=== PATIENT | female | born 1935 | race Caucasian/White ===

== ENCOUNTER 2017-03-06 21:37 | Observation (INO) | payer MEDICARE ==
[~2017-03-06] VITALS: Ht 160 cm; Wt 63.6 kg
[2017-03-06 21:39] VITALS: BP 122/74; PULSE 63; RESP 18; TEMP 98.9; O2SAT 91
[2017-03-06] MEDS ORDERED: SODIUM CHLOR 0.9% 1000 ML INJ 1,000 ML IV ONE (21:53)
[2017-03-06] MEDS ORDERED: ZOFR8TAB PO (21:58)
[2017-03-06] MEDS ORDERED: AMLO5 PO (21:58)
[2017-03-06 22:00] VITALS: O2SAT 98
[2017-03-06] MEDS ORDERED: methylPREDNISolone SOD SUCC 125 MG/2 ML VIAL IVP ONE (22:00)
[2017-03-06] MEDS ORDERED: AZITHROMYCIN INJ 500 MG in SODIUM CHLOR 0.9% 250 ML INJ 250 ML IV ONE (22:00)
[2017-03-06] MEDS ORDERED: cefTRIAXone INJ 1,000 MG in SODIUM CHLORIDE 0.9% INJ 100 ML IV ONE (22:00)
[2017-03-06] MEDS: RESP: ALBUTEROL 2.5 MG/IPRATROPIUM 0.5 MG NEB (SCH) INH ×2 (22:07→22:08)
[2017-03-06] MEDS ORDERED: ARIC10TA PO (22:10)
[2017-03-06 22:12] VITALS: BP 160/76; PULSE 64; RESP 18; TEMP 99.2; O2SAT 91
--- NOTE | 2017-03-06 22:18 | PD ---
HPI Chief Complaint: Respiratory Distress Time Seen by Provider: 21:47 Travel History International Travel<30 days: No Contact w/Intl Traveler<30days: No Traveled to known affect area: No History of Present Illness HPI 81-year-old female with history of dementia, hypertension, brought in by her son for evaluation of cough. The patient was diagnosed with pneumonia about a month ago. A few days ago she again developed a cough, and was seen at [facility] and was diagnosed with a right lower lobe pneumonia and she was started on Levaquin and given an albuterol inhaler. Patient's symptoms seem to worsen today with persisting cough sometimes productive of yellowish sputum and shortness of breath. She has also had a fever. She is having intermittent chest discomfort when she coughs, none at rest. No vomiting or diarrhea. No abdominal pain. According to the son, the patient is a former smoker, quitting about 20 years ago. She has no formal diagnosis of COPD or emphysema. No known history of coronary artery disease. [facility] Past Medical History Dementia: Yes Hypertension: Yes Tetanus Vaccination: Unknown Influenza Vaccination: No Past Surgical History Eye Surgery: Yes (corrective lens surgery) Joint Replacement: Yes (right shoulder) Social History Alcohol Use: No Tobacco Use: No Substance Use: No Allergies-Medications (Allergen,Severity, Reaction): Coded Allergies: Epinephrine (Verified Allergy, Severe, TACHYCARDIA AND CONFUSION, 03/06/17) Uncoded Allergies: UNKNOWN ANESTHESIA (Adverse Reaction, Severe, Confusion, 01/14/07) Reported Meds & Prescriptions Reported Meds & Active Scripts Active Reported Aricept (Donepezil) 10 Mg Tab 10 Mg PO HS Norvasc (Amlodipine Besylate) 5 Mg Tab 5 Mg PO DAILY Review of Systems Except as stated in HPI: all other systems reviewed are Neg Physical Exam Narrative GENERAL: Well-developed, well-nourished, elderly-appearing female, mild respiratory distress, speaking full sentences. SKIN: Focused skin assessment warm/dry. No rashes. HEAD: Atraumatic. Normocephalic. EYES: Pupils equal and round. No scleral icterus. No injection or drainage. ENT: No nasal bleeding or discharge. Mucous membranes pink and moist. NECK: Trachea midline. No JVD. CARDIOVASCULAR: Regular rate and rhythm. RESPIRATORY: Persistent cough, mild respiratory distress, speaking full sentences, slight inspiratory and auditory wheezes bilaterally. No rales. GASTROINTESTINAL: Abdomen soft, non-tender, nondistended. MUSCULOSKELETAL: No obvious deformities. No clubbing. No cyanosis. No edema. NEUROLOGICAL: Awake and alert. No obvious cranial nerve deficits. Motor grossly within normal limits. Normal speech. PSYCHIATRIC: Appropriate mood and affect; insight and judgment normal. Data Data Last Documented VS Vital Signs Date Time Temp Pulse Resp B/P Pulse Ox O2 Delivery O2 Flow Rate FiO2 03/06/17 22:12 99.2 64 18 160/76 91 03/06/17 22:00 Nasal Cannula 2 Orders Electrocardiogram (03/06/17 21:53) Complete Blood Count With Diff (03/06/17 21:53) Comprehensive Metabolic Panel (03/06/17:53) Prothrombin Time / Inr (Pt) (03/06/17:53) Act Partial Throm Time (Ptt) (03/06/17 21:53) Lactic Acid Sepsis Protocol (03/06/17 21:53) Ckmb (Isoenzyme) Profile (03/06/17:53) Troponin I (03/06/17:53) Urinalysis - C+S If Indicated (03/06/17 21:53) Influenzae A/B Antigen (03/06/17 21:53) Blood Culture (03/06/17:53) Chest, Single Ap (03/06/17:53) Ecg Monitoring (03/06/17 21:53) Iv Access Insert/Monitor (03/06/17 21:53) Oximetry (03/06/17 21:53) Oxygen Administration (03/06/17:53) Sodium Chlor 0.9% 1000 Ml Inj (Ns 1000 M (03/06/17 21:53) Ceftriaxone Inj (Rocephin Inj) (03/06/17 22:00) Azithromycin Inj (Zithromax Inj) (03/06/17 22:00) Methylprednisolone So Succ Inj (Solumedr (03/06/17 22:00) Albuterol-Ipratropium Neb (Duoneb Neb) (03/06/17 22:00) Admit Order (Ed Use Only) (03/06/17 22:42) CKMB (03/06/17 22:00) CKMB% (03/06/17 22:00) Labs Laboratory Tests Test 03/06/17 22:00 White Blood Count 6.5 TH/MM3 Red Blood Count 4.50 MIL/MM3 Hemoglobin 13.9 GM/DL Hematocrit 41.3 % Mean Corpuscular Volume 91.9 FL Mean Corpuscular Hemoglobin 30.8 PG Mean Corpuscular Hemoglobin 33.5 % Concent Red Cell Distribution Width 12.8 % Platelet Count 236 TH/MM3 Mean Platelet Volume 7.8 FL Neutrophils (%) (Auto) 56.9 % Lymphocytes (%) (Auto) 28.0 % Monocytes (%) (Auto) 12.8 % Eosinophils (%) (Auto) 0.9 % Basophils (%) (Auto) 1.4 % Neutrophils # (Auto) 3.7 TH/MM3 Lymphocytes # (Auto) 1.8 TH/MM3 Monocytes # (Auto) 0.8 TH/MM3 Eosinophils # (Auto) 0.1 TH/MM3 Basophils # (Auto) 0.1 TH/MM3 CBC Comment DIFF FINAL Differential Comment Prothrombin Time 11.0 SEC Prothromb Time International 1.0 RATIO Ratio Activated Partial 29.6 SEC Thromboplast Time Sodium Level 138 MEQ/L Potassium Level 3.4 MEQ/L Chloride Level 102 MEQ/L Carbon Dioxide Level 28.1 MEQ/L Anion Gap 8 MEQ/L Blood Urea Nitrogen 16 MG/DL Creatinine 0.66 MG/DL Estimat Glomerular Filtration 86 ML/MIN Rate Random Glucose 102 MG/DL Lactic Acid Level 1.0 mmol/L Calcium Level 8.3 MG/DL Total Bilirubin 0.5 MG/DL Aspartate Amino Transf 18 U/L (AST/SGOT) Alanine Aminotransferase 18 U/L (ALT/SGPT) Alkaline Phosphatase 78 U/L Total Creatine Kinase 140 U/L Creatine Kinase MB 3.0 NG/ML Troponin I LESS THAN 0.02 NG/ML Total Protein 6.9 GM/DL Albumin 3.2 GM/DL [facility] Medical Decision Making Medical Screen Exam Complete: Yes Emergency Medical Condition: Yes Differential Diagnosis Sepsis, pneumonia, reactive airway disease, ACS, pneumothorax, PE, Narrative Course Initial vital signs show heart rate 63, blood pressure 122/74, pulse ox 91% on room air, oral temp of 98.9F. CBC is unremarkable. CMP is unremarkable. Lactic acid is 1.0. Chest x-ray: No acute disease. No evidence of pneumonia. Patient was given 3 DuoNeb treatments and IV Solu-Medrol with improvement in wheezing. She is still hypoxic on room air with a sat of 91% on RA. This improves to 98% on 2 L nasal cannula. Patient is a former smoker, having quit 20 years ago. She has no formal diagnosis of COPD or emphysema. She is likely suffering from bronchitis/reactive airway disease. She does have a deep sounding/persistent cough here in the emergency department. She was given a dose of rocephin and azithromycin. Given her age and hypoxia, she will be admitted for overnight observation. Case discussed with [facility] hospitalist Dr. Patel who will admit the patient to his service. Patient's initial facies show that she had [employer] [facility] insurance, however she actually has [facility] insurance. Admission will be switched from [facility] to [facility]. Case discussed with hospitalist Dr. Gonzalez who will admit the patient to his service for overnight observation. Diagnosis Primary Impression: Bronchitis Additional Impression: Hypoxia Admitting Information Admitting Physician Requests: Observation Ron Yost MD March 06, 2017 22:18
[2017-03-06 22:31] LABS: AUTOMATED NEUTROPHIL # 3.7 TH/MM3 (1.8-7.7); BASOPHIL # 0.1 TH/MM3 (0-0.2); BASOPHIL % 1.4 % (0.0-2.0); EOSINOPHIL # 0.1 TH/MM3 (0-0.4); EOSINOPHIL % 0.9 % (0.0-4.0); HEMATOCRIT 41.3 % (35.0-46.0); HEMO FLAGS DIFF FINAL; LYMPHOCYTE # 1.8 TH/MM3 (1.0-4.8); MEAN CELL VOLUME 91.9 FL (80.0-100.0); MEAN CORPUSCULAR HEMOGLOBIN 30.8 PG (27.0-34.0); MEAN CORPUSCULAR HGB CONC 33.5 % (32.0-36.0); MONO % 12.8 % (0.0-8.0); NEUT % 56.9 % (16.0-70.0); PLATELET COUNT 236 TH/MM3 (150-450); RED CELL DISTRIBUTION WIDTH 12.8 % (11.6-17.2); WHITE BLOOD COUNT 6.5 TH/MM3 (4.0-11.0)
--- NOTE | 2017-03-06 22:33 | RADHPO ---
EXAM DATE/TIME: 03/06/2017 22:02 [place] COMPARISON: No previous studies available for comparison. INDICATIONS : Cough and congestion. MEDICAL HISTORY : Hypertension. Pneumonia. SURGICAL HISTORY : None. ENCOUNTER: Initial ACUITY: 4 - 6 days PAIN SCORE: 0/10 LOCATION: Bilateral chest FINDINGS: A single view of the chest demonstrates the lungs to be symmetrically aerated without evidence of mas s, infiltrate or effusion. The cardiomediastinal contours are unremarkable. Osseous structures are intact. Overlying cardiac leads and oxygen tubing. CONCLUSION: No acute disease. There is no evidence of pneumonia. Matthias Ruff MD on March 06, 2017 at 22:31 Board Certified Radiologist. This report was verified electronically.
[2017-03-06 22:40] LABS: CHLORIDE 102 MEQ/L (98-107); POTASSIUM 3.4 MEQ/L (3.5-5.1); SODIUM (NA) 138 MEQ/L (136-145)
[2017-03-06 22:44] LABS: ANION GAP 8 MEQ/L (5-15); APTT (PATIENT) 29.6 SEC (24.3-30.1); BICARBONATE 28.1 MEQ/L (21.0-32.0); BLOOD UREA NITROGEN 16 MG/DL (7-18)
[2017-03-06 22:47] LABS: ALT (GPT) 18 U/L (10-53); AST (GOT) 18 U/L (15-37); GLOMERULAR FILTRATION RATE 86 ML/MIN (>89)
[2017-03-06 22:49] LABS: TOTAL BILIRUBIN ADULT 0.5 MG/DL (0.2-1.0)
[2017-03-06 22:50] LABS: ALKALINE PHOSPHATASE 78 U/L (45-117); CREATINE KINASE 140 U/L (26-192)
[2017-03-06 23:01] VITALS: PULSE 72; RESP 18; O2SAT 98
[2017-03-06 23:21] VITALS: BP 133/59
[2017-03-07] VITALS (9 sets, daily range): BP systolic 110–144; BP diastolic 62–74; PULSE 60–72; RESP 16–21; TEMP 96.4–98.1; O2SAT 94–97
[2017-03-07 00:03] LABS: BLOOD, URINE TRACE (NEG); GLUCOSE,URINE NEG (NEG); KETONE, URINE TRACE mg/dL (NEG); NITRITE,URINE NEG (NEG); PH, URINE 5.5 (5.0-8.5)
[2017-03-07 00:09] LABS: URINE COLOR YELLOW (YELLW/STRAW)
[2017-03-07 00:12] LABS: MUCUS URINE FEW /lpf (OCC); RBC, URINE 0-3 /hpf (0-3); SQUAMOUS EPITHELIAL CELL URINE 0-5 /hpf (0-5)
[2017-03-07 00:13] LABS: BACTERIA, URINE OCC /hpf; COMMENT (UR) CULT NOT INDICATED; CULTURE IF INDICATED CULT NOT INDICATED
[2017-03-07] MEDS ORDERED: POTASSIUM CHLORIDE 25 MEQ EFFERVESCENT TAB PO ONE (02:00)
[2017-03-07] MEDS ORDERED: NALOXONE HCL 0.4 MG/ML AMP IV PRN (02:00)
[2017-03-07] MEDS ORDERED: SODIUM CHLORIDE 0.9% FLUSH 10 ML FLUSH IV FLUSH PRN (02:00)
[2017-03-07] MEDS ORDERED: ACETAMINOPHEN 325 MG TAB PO PRN ×2 (02:00)
[2017-03-07 07:52] LABS: CHLORIDE 108 MEQ/L (98-107); POTASSIUM 3.8 MEQ/L (3.5-5.1); SODIUM (NA) 144 MEQ/L (136-145)
[2017-03-07 08:04] LABS: ANION GAP 10 MEQ/L (5-15); BICARBONATE 26.3 MEQ/L (21.0-32.0)
[2017-03-07 08:05] LABS: BLOOD UREA NITROGEN 11 MG/DL (7-18)
[2017-03-07 08:08] LABS: ALT (GPT) 17 U/L (10-53); AST (GOT) 19 U/L (15-37); GLOMERULAR FILTRATION RATE 111 ML/MIN (>89)
[2017-03-07 08:09] LABS: TOTAL BILIRUBIN ADULT 0.3 MG/DL (0.2-1.0)
[2017-03-07 08:10] LABS: ALKALINE PHOSPHATASE 69 U/L (45-117)
[2017-03-07] MEDS: amLODIPine BESYLATE 5 MG TAB PO SCH (09:49)
[2017-03-07] MEDS: SODIUM CHLORIDE 0.9% FLUSH 10 ML FLUSH IV FLUSH SCH ×2 (09:49→20:08)
--- NOTE | 2017-03-07 11:57 | HHI.HP ---
[facility] Asmita Morrison DO Admission Diagnosis bronchitis, hypoxia Diagnoses: (1) Hypoxia Diagnosis: Principal (2) Bronchitis Diagnosis: Principal Travel History International Travel<30 Days: No Contact w/Intl Traveler <30 Da: No Traveled to Known Affected Are: No History of Present Illness Mrs. Santos is a 81-year-old female. She came in overnight with hypoxia and bronchitis. She may have COPD exacerbation but she does not have COPD officially diagnosed. Evidence of COPD is present on chest x-ray. She has a history of pneumonia last month and has had another episode of bronchitis in between. Her imaging did not show any evidence of pneumonia. Her only other complaint is constipation. She has a aortic aneurysm which is about 3 cm in diameter. History right shoulder surgery. She has smoked in the past but denies current smoking, no alcohol abuse, no drug abuse. When seen she remains on oxygen. Breathing has improved since she arrived into the ER. No fevers. No other complaints. Review of Systems Constitutional: DENIES: Fever, Chills Eyes: DENIES: Blurred vision, Diplopia Ears, nose, mouth, throat: DENIES: Hearing loss, Vertigo Respiratory: COMPLAINS OF: Cough, Wheezing, Shortness of breath Cardiovascular: DENIES: Chest pain, Palpitations, Syncope Gastrointestinal: DENIES: Abdominal pain, Black stools, Bloody stools Musculoskeletal: DENIES: Joint pain, Muscle aches Integumentary: DENIES: Abnormal pigmentation Hematologic/lymphatic: DENIES: Bruising Immunologic/allergic: DENIES: Eczema Neurologic: DENIES: Abnormal gait Psychiatric: DENIES: Anxiety, Confusion, Mood changes Past Family Social History Past Medical History History of pneumonia Aortic aneurysm Possible COPD Constipation Hypertension Past Surgical History Right shoulder surgery Reported Medications Reported Meds & Active Scripts Active Reported Aricept (Donepezil) 10 Mg Tab 10 Mg PO HS Norvasc (Amlodipine Besylate) 5 Mg Tab 5 Mg PO DAILY Allergies: Coded Allergies: Epinephrine (Verified Allergy, Severe, TACHYCARDIA AND CONFUSION, 03/06/17) Uncoded Allergies: UNKNOWN ANESTHESIA (Adverse Reaction, Severe, Confusion, 01/14/07) Active Ordered Medications Administered Medications Medications (Trade) Dose Ordered Sig/Sneha Route PRN Reason Start Time Stop Time Status Last Admin Dose Admin Amlodipine Besylate (Norvasc) 5 mg DAILY PO 03/07/17 09:00 03/07/17 09:49 Sodium Chloride (NS Flush) 2 ml BID IV FLUSH 03/07/17 09:00 03/07/17 09:49 Family History Cancer in 2 sisters and diabetes mellitus type 2 and CVA and one sister Social History Past history of smoking. Not currently smoking Alcohol abuse No drug abuse Physical Exam Vital Signs Vital Signs Date Time Temp Pulse Resp B/P Pulse Ox O2 Delivery O2 Flow Rate FiO2 03/07/17 11:40 Nasal Cannula 2.00 03/07/17 08:00 98.1 61 17 114/62 96 03/07/17 02:00 97 Nasal Cannula 2.00 03/07/17 01:30 98 Nasal Cannula 2.00 03/07/17 01:06 88 18 133/70 98 Nasal Cannula 2 03/07/17 00:53 96.4 71 21 144/69 97 03/06/17 23:21 133/59 03/06/17 23:01 72 18 98 Nasal Cannula 2 03/06/17 22:12 99.2 64 18 160/76 91 03/06/17 22:00 91 Nasal Cannula 2 03/06/17 22:00 18 91 Nasal Cannula 2 03/06/17 22:00 98 Nasal Cannula 2 03/06/17 21:39 98.9 63 18 122/74 91 Physical Exam GENERAL: This is a well-nourished, well-developed patient, in no apparent distress. SKIN: No rashes, ecchymoses or lesions. Cool and dry. HEAD: Atraumatic. Normocephalic. No temporal or scalp tenderness. EYES: Pupils equal round and reactive. Extraocular motions intact. No scleral icterus. No injection or drainage. ENT: Nose without bleeding, purulent drainage or septal hematoma. Throat without erythema, tonsillar hypertrophy or exudate. Uvula midline. Airway patent. NECK: Trachea midline. No JVD or lymphadenopathy. Supple, nontender, no meningeal signs. CARDIOVASCULAR: Regular rate and rhythm without murmurs, gallops, or rubs. RESPIRATORY: Clear to auscultation. Breath sounds equal bilaterally. No wheezes , rales, or rhonchi. GASTROINTESTINAL: Abdomen soft, non-tender, nondistended. No hepato-splenomegaly , or palpable masses. No guarding. MUSCULOSKELETAL: Extremities without clubbing, cyanosis, or edema. No joint tenderness, effusion, or edema noted. No calf tenderness. Negative Homans sign bilaterally. NEUROLOGICAL: Awake and alert. Cranial nerves II through XII intact. Motor and sensory grossly within normal limits. Five out of 5 muscle strength in all muscle groups. Normal speech. Laboratory Laboratory Tests Test 03/06/17 03/06/17 03/07/17 22:00 23:55 05:50 White Blood Count 6.5 Red Blood Count 4.50 Hemoglobin 13.9 Hematocrit 41.3 Mean Corpuscular Volume 91.9 Mean Corpuscular Hemoglobin 30.8 Mean Corpuscular Hemoglobin 33.5 Concent Red Cell Distribution Width 12.8 Platelet Count 236 Mean Platelet Volume 7.8 Neutrophils (%) (Auto) 56.9 Lymphocytes (%) (Auto) 28.0 Monocytes (%) (Auto) 12.8 Eosinophils (%) (Auto) 0.9 Basophils (%) (Auto) 1.4 Neutrophils # (Auto) 3.7 Lymphocytes # (Auto) 1.8 Monocytes # (Auto) 0.8 Eosinophils # (Auto) 0.1 Basophils # (Auto) 0.1 CBC Comment DIFF FINAL Differential Comment Prothrombin Time 11.0 Prothromb Time International 1.0 Ratio Activated Partial 29.6 Thromboplast Time Sodium Level 138 144 Potassium Level 3.4 3.8 Chloride Level 102 108 Carbon Dioxide Level 28.1 26.3 Anion Gap 8 10 Blood Urea Nitrogen 16 11 Creatinine 0.66 0.53 Estimat Glomerular Filtration 86 111 Rate Random Glucose 102 174 Lactic Acid Level 1.0 Calcium Level 8.3 8.4 Total Bilirubin 0.5 0.3 Aspartate Amino Transf 18 19 (AST/SGOT) Alanine Aminotransferase 18 17 (ALT/SGPT) Alkaline Phosphatase 78 69 Total Creatine Kinase 140 Creatine Kinase MB 3.0 Troponin I LESS THAN 0.02 Total Protein 6.9 6.6 Albumin 3.2 3.0 Urine Color YELLOW Urine Turbidity CLEAR Urine pH 5.5 Urine Specific [place] 1.010 Urine Protein NEG Urine Glucose (UA) NEG Urine Ketones TRACE Urine Occult Blood TRACE Urine Nitrite NEG Urine Bilirubin NEG Urine Leukocyte Esterase SMALL Urine RBC 0-3 Urine WBC 6-8 Urine Squamous Epithelial 0-5 Cells Urine Amorphous Sediment FEW Urine Bacteria OCC Urine Hyaline Casts 3-5 Urine Mucus FEW Microscopic Urinalysis Comment CULT NOT INDICATED Date/Time Procedure Status Source Growth 03/06/17 22:15 Influenza Types A,B Antigen ([place]OR[place]) - Final Complete Nasal Washing NEGATIVE FOR FLU A AND B ANTIGEN.... 03/06/17 22:10 Aerobic Blood Culture - Preliminary Resulted Blood Peripheral NO GROWTH IN 1 DAY 03/06/17 22:10 Anaerobic Blood Culture - Preliminary Resulted Blood Peripheral NO GROWTH IN 1 DAY Result Diagram: 03/06/17219903/07/17 0550 Imaging Last Impressions Chest X-Ray 03/06/172152 Signed Impressions: Service Date/Time: Monday, March 06, 2017 22:02 - CONCLUSION: No acute disease. There is no evidence of pneumonia. Matthias Ruff MD Assessment and Plan Problem List: (1) Hypoxia ICD Code: R09.02 Status: Acute (2) Bronchitis ICD Code: J40 Status: Acute (3) HTN (hypertension) ICD Code: I10 Status: Acute Assessment and Plan Assessment and plan 81-year-old female admitted with bronchitis and hypoxia. Possible COPD with COPD exacerbation (undiagnosed). Bronchitis Hypoxia Continue oxygen supplementation Continue Rocephin and azithromycin Continue systemic steroids Follow for improvement Wean off oxygen Constipation Milk of magnesia as needed Aortic aneurysm Followed as an outpatient Danyel Schaffer MD March 07, 2017 11:57
[2017-03-07] MEDS: LACTOBACILLUS ACIDOPHILUS TAB PO SCH ×2 (13:00→17:19)
[2017-03-07] MEDS ORDERED: guaiFENesin/CODEINE SYRUP 200 MG/20 MG/10 ML CUP PO PRN (14:45)
[2017-03-07] MEDS: RESP: ALBUTEROL 2.5 MG/IPRATROPIUM 0.5 MG NEB (PRN) NEB (19:28)
--- NOTE | 2017-03-07 19:34 | EKG ---
Date Performed: 03/06/2017 Time Performed: 22:45:02 PTAGE: 81 years EKG: Sinus rhythm with PAC(s). Short AR interval Anterolateral T wave changes are nonspecific Borderline ECG PREVIOUS TRACING : 03/08/2005 10.38 Compared to prior tracing no significant change DOCTOR: Amira Meza Interpretating Date/Time 03/07/2017 19:33:54
[2017-03-07] MEDS: predniSONE 20 MG TAB PO SCH (20:08)
[2017-03-07] MEDS ORDERED: DONEPEZIL HCL 5 MG TAB PO SCH (21:00)
[2017-03-07] MEDS ORDERED: cefTRIAXone INJ 1,000 MG in SODIUM CHLORIDE 0.9% INJ 100 ML IV SCH (21:00)
[2017-03-07] MEDS ORDERED: AZITHROMYCIN INJ 500 MG in SODIUM CHLOR 0.9% 250 ML INJ 250 ML IV SCH (22:00)
[2017-03-08] VITALS: BP 153/83; PULSE 60; RESP 16; TEMP 97.1; O2SAT 98
[2017-03-08 08:00] VITALS: BP 135/75; PULSE 59; RESP 18; TEMP 97; O2SAT 95
[2017-03-08] MEDS: SODIUM CHLORIDE 0.9% FLUSH 10 ML FLUSH IV FLUSH SCH (08:33)
[2017-03-08] MEDS: amLODIPine BESYLATE 5 MG TAB PO SCH (09:19)
[2017-03-08] MEDS: LACTOBACILLUS ACIDOPHILUS TAB PO SCH ×2 (09:19→13:00)
[2017-03-08] MEDS: predniSONE 20 MG TAB PO SCH (09:19)
--- NOTE | 2017-03-08 09:43 | HHI.PR ---
Subjective Remarks The patient seemed confused. She did not seem to have any acute complaints. She appeared to be breathing comfortably. Objective Vitals Vital Signs Date Time Temp Pulse Resp B/P Pulse Ox O2 Delivery O2 Flow Rate FiO2 03/08/17 08:00 97.0 59 18 135/75 95 03/08/17 00:00 97.1 60 16 153/83 98 03/07/17 20:00 97.0 60 16 142/74 97 03/07/17 19:30 94 Nasal Cannula 2.00 03/07/17 19:00 Nasal Cannula 2.00 03/07/17 16:00 98.0 69 19 110/72 94 03/07/17 14:46 94 Nasal Cannula 1.00 03/07/17 12:00 97.7 72 18 116/70 95 03/07/17 11:40 Nasal Cannula 2.00 I/O 03/07/17 03/07/17 03/07/17 03/08/17 03/08/17 03/08/17 07:00 15:00 23:00 07:00 15:00 23:00 Intake Total 1370 ml 350 ml Output Total 400 ml Balance 970 ml 350 ml Intake Oral 120 ml IV Total 1250 ml 350 ml Output Urine Total 400 ml # Voids 1 2 # Bowel Movements 0 Result Diagram: 03/06/17 2200 03/07/17 0550 Imaging Last Impressions Chest X-Ray 03/06/172152 Signed Impressions: Service Date/Time: Monday, March 06, 2017 22:02 - CONCLUSION: No acute disease. There is no evidence of pneumonia. Matthias Ruff MD Objective Remarks GENERAL: This is a well-nourished, well-developed patient, in no apparent distress. SKIN: No rashes, ecchymoses or lesions. Cool and dry. HEAD: Atraumatic. Normocephalic. No temporal or scalp tenderness. EYES: Pupils equal round and reactive. Extraocular motions intact. No scleral icterus. No injection or drainage. ENT: Nose without bleeding, purulent drainage or septal hematoma. Throat without erythema, tonsillar hypertrophy or exudate. Uvula midline. Airway patent. NECK: Trachea midline. No JVD or lymphadenopathy. Supple, nontender, no meningeal signs. CARDIOVASCULAR: Regular rate and rhythm without murmurs, gallops, or rubs. RESPIRATORY: Clear to auscultation. Breath sounds equal bilaterally. No wheezes , rales, or rhonchi. GASTROINTESTINAL: Abdomen soft, non-tender, nondistended. No hepato-splenomegaly , or palpable masses. No guarding. MUSCULOSKELETAL: Extremities without clubbing, cyanosis, or edema. No joint tenderness, effusion, or edema noted. NEUROLOGICAL: Awake and alert, confused. Cranial nerves II through XII intact. Motor and sensory grossly within normal limits. Five out of 5 muscle strength in all muscle groups. PSYCH: Flattened affect. Medications and IVs Current Medications Medications (Trade) Dose Ordered Sig/Sneha Route Start Time Stop Time Status Last Admin (Norvasc) 5 mg DAILY PO 03/07/17 09:00 03/08/17 09:19 (Aricept) 10 mg HS PO 03/07/17 21:00 03/07/17 20:07 (NS Flush) 2 ml UNSCH PRN IV FLUSH 03/07/17 02:00 (NS Flush) 2 ml BID IV FLUSH 03/07/17 09:00 03/07/17 20:08 (Tylenol) 650 mg Q4H PRN PO 03/07/17 02:00 (Tylenol) 650 mg Q6H PRN PO 03/07/17 02:00 Naloxone HCl 0.4 mg 0.4 mg UNSCH PRN IV 03/07/17 02:00 Azithromycin 500 mg/Sodium Chloride 250 ml @ 250 mls/hr Q24H IV 03/07/17 22:00 03/07/17 22:08 (Rocephin Inj/NS Inj) 100 ml @ 200 mls/hr Q24H IV 03/07/17 21:00 03/07/17 20:08 (Lactinex) 1 tab TID PO 03/07/17 13:00 03/08/17 09:19 (Deltasone) 40 mg BID PO 03/07/17 21:00 03/08/17 09:19 (Robitussin Ac 200-20 Mg/10 ml Liq) 10 ml Q6H PRN PO 03/07/17 14:45 03/07/17 15:01 A/P Problem List: (1) Hypoxia ICD Code: R09.02 Status: Acute (2) Bronchitis ICD Code: J40 Status: Acute (3) HTN (hypertension) ICD Code: I10 Status: Acute Assessment and Plan Bronchitis/ Hypoxemia Recently treated for PNA. CXR without acute disease - Continue oxygen supplementation. - Continue Rocephin and azithromycin. - Continue to wean steroids. - home oxygen walk test. - nebs as needed. Dementia On donepezil as an outpatient. - physical therapy. - Continue home meds. Hyperglycemia Likely s/t steroids. - monitor as needed. Constipation No bowel movements recorded. - Milk of magnesia as needed. Aortic aneurysm Chronic. - Followed as an outpatient. PPx: SCDs. Discharge Planning Awaiting respiratory walk test and physical therapy evaluation. Matthias Gonzalez DO March 08, 2017 09:43
[2017-03-08 10:00] VITALS: O2SAT 98
[2017-03-08] MEDS ORDERED: OXYGENTANK NAS.CANULA (11:45)
[2017-03-08 12:00] VITALS: BP 152/79; PULSE 67; RESP 20; TEMP 97.2; O2SAT 94
[2017-03-08] MEDS ORDERED: PRED20 PO (12:05)
[2017-03-08] MEDS ORDERED: ALBUAER3 INH (12:05)
[2017-03-08] MEDS ORDERED: DOXY100C PO (12:05)
--- NOTE | 2017-03-08 12:07 | HHI.DCPOC ---
Discharge Care Plan Diagnosis: (1) Hypoxia (2) Bronchitis Goals to Promote Your Health * To prevent worsening of your condition and complications * To maintain your health at the optimal level Directions to Meet Your Goals Take your medications as prescribed Follow your dietary instruction Follow activity as directed Keep your appointments as scheduled Take your immunizations and boosters as scheduled If your symptoms worsen call your PCP, if no PCP go to Urgent Care Center or Emergency Room Smoking is Dangerous to Your Health. Avoid second hand smoke Call the 24-hour hour crisis hotline for domestic abuse at Matthias Gonzalez DO March 08, 2017 12:07
--- NOTE | 2017-03-08 12:07 | HHI.FF ---
Face to Face Verification Diagnosis: (1) Bronchitis (2) Hypoxia Home Health Nursing Order: Medical education Signs/symptoms of disease process Oxygen administration education Medication education-adverse effect Nursing assessment with vital signs I have seen patient Coty Santos on 03/08/17. My clinical findings support the need for the requested home health care services because: Ltd mobility - disease progression Patient has SOB Deconditioned w/ increased weakness Med compliance is questionable Limited ability to care for self Need for psychosocial assistance Impaired cognition/judgement High risk of falls I certify that my clinical findings support that this patient is homebound because: Impaired cognitive ability/safety Unsafe to leave home unassisted Need for psychosocial assistance Matthias Gonzalez DO March 08, 2017 12:07
[2017-03-08] MEDS: RESP: ALBUTEROL 2.5 MG/IPRATROPIUM 0.5 MG NEB (PRN) NEB (13:32)
[2017-03-09] MEDS ORDERED: predniSONE 20 MG TAB PO SCH (09:00)
== END 2017-03-08 16:42 | disposition home or self-care (01) ==
LOC: PHED 21:37 → PHEDA 22:43 → PH3B 03-07 00:53
PROVIDERS: ADMIT Hospitalist; ATTEND Hospitalist
DX: R09.02 Hypoxemia (principal); J40 Bronchitis, not specified as acute or chronic; I10 Essential (primary) hypertension; I71.9 Aortic aneurysm of unspecified site, without rupture; R73.9 Hyperglycemia, unspecified; K59.00 Constipation, unspecified; F03.90 Unspecified dementia, unspecified severity, without behavioral disturbance, psychotic disturbance, mood disturbance, and anxiety; Z87.01 Personal history of pneumonia (recurrent); Z88.8 Allergy status to other drugs, medicaments and biological substances; Z87.891 Personal history of nicotine dependence
CPT/HCPCS: 71010; 80053; 81001; 82550; 82552; 83605; 84484; 85025; 85610; 85730; 87040; 87804; 93005; 94620; 94640; 94664; 96365; 96375; 97162; 99285; G0378; G8987; G8988; J0456; J0696; J2930; J7030; J7050; J7512